=== PATIENT | male | born 1960 | race Caucasian/White ===

== ENCOUNTER 2017-12-19 09:19 | Inpatient (IN) | payer OTHER ==
[2017-12-19] MEDS: SOD CHLORIDE 0.9% 1,000 ML IV ×4 (09:51→20:23)
[2017-12-19 10:48] LABS: ADD MAN DIFF? NO
[2017-12-19 10:53] LABS: WHITE BLOOD COUNT 6.6 10^3/ul (4.8-10.8)
[2017-12-19 10:53] LABS: ABNORMAL IP MESSAGE 1; BASOPHILS % 0.2 % (0.0-2.0); HEMATOCRIT 46.6 % (42.0-52.0); HEMOGLOBIN 16.5 g/dl (14.0-18.0); LYMPHOCYTES # 0.6 10^3/ul (0.8-2.9); LYMPHOCYTES % 9.5 % (15.0-51.0); MEAN CORPUSCULAR HEMOGLOBIN 30.3 pg (29.0-33.0); MEAN CORPUSCULAR HGB CONC 35.4 g/dl (32.0-37.0); MEAN CORPUSCULAR VOLUME 85.7 fl (82.0-101.0); MEAN PLATELET VOLUME 10.5 fl (7.4-10.4); MONOCYTE # 0.9 10^3/ul (0.3-0.9); MONOCYTES % 13.4 % (0.0-11.0); NEUTROPHILS % 76.6 % (39.0-77.0); PLATELET COUNT 162 10^3/UL (140-415); POSITIVE DIFF @See below; RED BLOOD COUNT 5.44 10^6/ul (4.70-6.10); RED CELL DISTRIBUTION WIDTH 12.7 % (11.5-14.5)
[2017-12-19] MEDS: HYDROmorphONE 0.5 MG/0.5 ML SYG IV ×2 (10:57→10:59)
[2017-12-19] MEDS: ONDANSETRON 4 MG INJ IV ×2 (10:57→22:14)
[2017-12-19 11:16] LABS: PROTIME 13.3 Sec (11.9-14.9)
[2017-12-19 11:17] LABS: PARTIAL THROMBOPLASTIN TIME 31.9 Sec (25.0-35.0)
[2017-12-19 11:18] LABS: ALANINE AMINOTRANSFERASE 35 IU/L (13-69); ALBUMIN 4.3 g/dl (3.3-4.9); ALBUMIN/GLOBULIN RATIO 1.22; ALKALINE PHOSPHATASE 53 IU/L (42-121); ANION GAP 18 (8-16); ASPARTATE AMINO TRANSFERASE 25 IU/L (15-46); BILIRUBIN,INDIRECT 0.8 mg/dl (0-1.1); BILIRUBIN,TOTAL 0.8 mg/dl (0.2-1.3); BLOOD UREA NITROGEN 69 mg/dl (7-20); CARBON DIOXIDE 27 mmol/L (21-31); CHLORIDE 98 mmol/L (97-110); CREATININE 1.76 mg/dl (0.61-1.24); GLUCOSE 110 mg/dl (70-220); LIPASE 114 U/L (23-300); POTASSIUM 4.3 mmol/L (3.5-5.1); SODIUM 139 mmol/L (135-144); TOTAL PROTEIN 7.8 g/dl (6.1-8.1)
[2017-12-19] MEDS ORDERED: DOCUSATE SODIUM 100 MG CAP PO (14:30)
[2017-12-19] MEDS ORDERED: hydrALAzine 20 MG INJ IV (14:30)
[2017-12-19] MEDS ORDERED: ACETAMINOPHEN 325 MG TAB PO ×2 (14:30)
[2017-12-19] MEDS ORDERED: MAGNESIUM HYDROXIDE 30ML CUP PO (14:30)
[2017-12-19] MEDS ORDERED: NITROGLYCERIN (SL) 0.4 MG TAB SL (14:30)
[2017-12-19] MEDS ORDERED: NACL 0.9% 3 ML SYG IV (14:30)
[2017-12-19] MEDS ORDERED: NA PHOSPHATE/BIPHOS 133 ML ENEMA PR (14:30)
[2017-12-19] MEDS ORDERED: ALBUTEROL/IPRATROPIUM (NEB) 3 ML AMP HHN (14:30)
[2017-12-19] MEDS ORDERED: ONDANSETRON 4 MG INJ IV (14:30)
[2017-12-19] MEDS ORDERED: morphine 2 MG INJ IV (14:30)
[2017-12-19] MEDS ORDERED: LORAZEPAM 2 MG INJ IV (14:30)
[2017-12-19] MEDS: CEFEPIME 2GM/50 ML (PMX) 50 ML IVPB (14:43)
[2017-12-19 15:36] LABS: INR 1.02; PROTIME 13.5 Sec (11.9-14.9); PT RATIO 1.1
[2017-12-19] MEDS: VANCOMYCIN 1 GM (PMX) 250 ML IVPB (15:55)
[2017-12-19 16:04] LABS: FREE T4 (FREE THYROXINE) 1.36 ng/dl (0.64-1.79)
[2017-12-19] MEDS: HYDROCODONE/APAP (5/325) TAB PO ×2 (17:38→22:41)
[2017-12-19] MEDS: CIPROFLOXACIN 400MG/D5W 200 ML IVPB ×2 (18:21→21:00)
[2017-12-19] MEDS: MAGNESIUM CITRATE 300 ML BTL PO (20:22)
[2017-12-19] MEDS: BISACODYL (EC) 5 MG TAB PO (20:22)
[2017-12-19] MEDS: FAMOTIDINE 20 MG INJ IV (20:23)
[2017-12-19] MEDS: POLYETHYLENE GLYCOL 3350 119 GM POWDER PO (21:10)
[2017-12-19] MEDS: metroNIDAZOLE 500 MG/NS (PMX) 100 ML IVPB (22:10)
[2017-12-20] MEDS: SOD CHLORIDE 0.9% 1,000 ML IV ×4 (00:24→22:14)
[2017-12-20] MEDS: metroNIDAZOLE 500 MG/NS (PMX) 100 ML IVPB ×3 (05:39→22:14)
[2017-12-20] MEDS: POLYETHYLENE GLYCOL 3350 119 GM POWDER PO (05:44)
[2017-12-20 06:13] LABS: ADD MAN DIFF? NO
[2017-12-20 06:32] LABS: HEMOGLOBIN A1C 4.9 % (0-5.9)
[2017-12-20 06:49] LABS: ANION GAP 13 (8-16); BLOOD UREA NITROGEN 43 mg/dl (7-20); CALCIUM 8.1 mg/dl (8.4-10.2); CARBON DIOXIDE 27 mmol/L (21-31); CHLORIDE 106 mmol/L (97-110); CREATININE 1.16 mg/dl (0.61-1.24); GLUCOSE 92 mg/dl (70-220); MAGNESIUM 2.6 mg/dl (1.7-2.5); PHOSPHORUS 2.5 mg/dl (2.5-4.9); POTASSIUM 4.4 mmol/L (3.5-5.1); SODIUM 142 mmol/L (135-144)
[2017-12-20 07:01] LABS: CHOLESTEROL 103 mg/dl (100-200)
[2017-12-20 07:01] LABS: CHOL/HDL RATIO 6.8 RATIO; HDL CHOLESTEROL 15 mg/dl (28-71); LDL CHOLESTEROL,CALCULATED 62 mg/dl; TRIGLYCERIDES 132 mg/dl (0-149)
[2017-12-20 07:33] LABS: BASOPHILS % 0.4 % (0.0-2.0); EOSINOPHILS % 0.2 % (0.0-7.0); HEMATOCRIT 39.5 % (42.0-52.0); HEMOGLOBIN 13.8 g/dl (14.0-18.0); LYMPHOCYTES % 18.1 % (15.0-51.0); MEAN CORPUSCULAR HEMOGLOBIN 30.5 pg (29.0-33.0); MEAN CORPUSCULAR HGB CONC 34.9 g/dl (32.0-37.0); MEAN CORPUSCULAR VOLUME 87.2 fl (82.0-101.0); MEAN PLATELET VOLUME 11.1 fl (7.4-10.4); MONOCYTE # 0.7 10^3/ul (0.3-0.9); MONOCYTES % 12.8 % (0.0-11.0); NEUTROPHIL # 3.6 10^3/ul (1.6-7.5); NEUTROPHILS % 67.8 % (39.0-77.0); PLATELET COUNT 151 10^3/UL (140-415); POSITIVE DIFF @See below; RED BLOOD COUNT 4.53 10^6/ul (4.70-6.10); RED CELL DISTRIBUTION WIDTH 12.8 % (11.5-14.5)
[2017-12-20 07:33] LABS: WHITE BLOOD COUNT 5.4 10^3/ul (4.8-10.8)
[2017-12-20] MEDS: CIPROFLOXACIN 400MG/D5W 200 ML IVPB ×2 (08:03→21:08)
[2017-12-20] MEDS: FAMOTIDINE 20 MG INJ IV (08:03)
[2017-12-20] MEDS: BISACODYL (EC) 5 MG TAB PO (08:03)
[2017-12-20 08:45] LABS: THYROID STIMULATING HORMONE 0.626 MIU/L (0.465-4.680)
[2017-12-20] MEDS ORDERED: PROPOFOL 60 ML (16:48)
[2017-12-20] MEDS ORDERED: MIDAZOLAM 1 MG/ML 2 ML INJ (16:48)
[2017-12-20] MEDS ORDERED: LIDOCAINE 1% (MPF) 5 ML VIAL (16:49)
[2017-12-21] MEDS: metroNIDAZOLE 500 MG/NS (PMX) 100 ML IVPB ×3 (05:28→22:48)
[2017-12-21 05:57] LABS: ADD MAN DIFF? NO
[2017-12-21 05:58] LABS: EOSINOPHILS % 0.4 % (0.0-7.0); HEMATOCRIT 33.9 % (42.0-52.0); HEMOGLOBIN 11.7 g/dl (14.0-18.0); LYMPHOCYTES # 1.5 10^3/ul (0.8-2.9); LYMPHOCYTES % 29.8 % (15.0-51.0); MEAN CORPUSCULAR HGB CONC 34.5 g/dl (32.0-37.0); MEAN CORPUSCULAR VOLUME 86.9 fl (82.0-101.0); MEAN PLATELET VOLUME 10.2 fl (7.4-10.4); MONOCYTE # 0.6 10^3/ul (0.3-0.9); MONOCYTES % 12.2 % (0.0-11.0); NEUTROPHIL # 2.9 10^3/ul (1.6-7.5); NEUTROPHILS % 57.2 % (39.0-77.0); PLATELET COUNT 138 10^3/UL (140-415)
[2017-12-21 05:58] LABS: WHITE BLOOD COUNT 5.1 10^3/ul (4.8-10.8)
[2017-12-21] MEDS: SOD CHLORIDE 0.9% 1,000 ML IV ×3 (06:10→22:48)
[2017-12-21 06:17] LABS: ANION GAP 13 (8-16); BLOOD UREA NITROGEN 26 mg/dl (7-20); CALCIUM 7.6 mg/dl (8.4-10.2); CARBON DIOXIDE 26 mmol/L (21-31); CHLORIDE 108 mmol/L (97-110); GLUCOSE 74 mg/dl (70-220); POTASSIUM 3.8 mmol/L (3.5-5.1); SODIUM 143 mmol/L (135-144)
[2017-12-21] MEDS: CIPROFLOXACIN 400MG/D5W 200 ML IVPB ×2 (09:03→20:31)
[2017-12-21] MEDS: FAMOTIDINE 20 MG INJ IV (09:03)
[2017-12-21] MEDS: predniSONE 20 MG TAB PO (12:02)
[2017-12-21] MEDS: BALSALAZIDE 750 MG CAP PO (21:00)
[2017-12-22] MEDS: SOD CHLORIDE 0.9% 1,000 ML IV (02:24)
[2017-12-22] MEDS: metroNIDAZOLE 500 MG/NS (PMX) 100 ML IVPB (05:59)
[2017-12-22] MEDS: PANTOPRAZOLE (EC) 40 MG TAB PO (06:02)
[2017-12-22 06:09] LABS: ADD MAN DIFF? NO
[2017-12-22 06:14] LABS: WHITE BLOOD COUNT 5.7 10^3/ul (4.8-10.8)
[2017-12-22 06:14] LABS: EOSINOPHILS % 0.2 % (0.0-7.0); HEMATOCRIT 33.7 % (42.0-52.0); HEMOGLOBIN 11.9 g/dl (14.0-18.0); LYMPHOCYTES # 1.3 10^3/ul (0.8-2.9); MEAN CORPUSCULAR HEMOGLOBIN 30.4 pg (29.0-33.0); MEAN CORPUSCULAR HGB CONC 35.3 g/dl (32.0-37.0); MEAN CORPUSCULAR VOLUME 86.2 fl (82.0-101.0); MONOCYTE # 0.7 10^3/ul (0.3-0.9); MONOCYTES % 11.5 % (0.0-11.0); NEUTROPHIL # 3.7 10^3/ul (1.6-7.5); NEUTROPHILS % 64.3 % (39.0-77.0); PLATELET COUNT 144 10^3/UL (140-415); RED BLOOD COUNT 3.91 10^6/ul (4.70-6.10); RED CELL DISTRIBUTION WIDTH 12.6 % (11.5-14.5)
[2017-12-22 06:46] LABS: ANION GAP 12 (8-16); BLOOD UREA NITROGEN 18 mg/dl (7-20); CALCIUM 7.9 mg/dl (8.4-10.2); CARBON DIOXIDE 27 mmol/L (21-31); CHLORIDE 108 mmol/L (97-110); CREATININE 0.98 mg/dl (0.61-1.24); GLUCOSE 92 mg/dl (70-220); POTASSIUM 4.2 mmol/L (3.5-5.1); SODIUM 143 mmol/L (135-144)
[2017-12-22] MEDS: CIPROFLOXACIN 400MG/D5W 200 ML IVPB (08:50)
[2017-12-22] MEDS: predniSONE 20 MG TAB PO (09:21)
[2017-12-22] MEDS: BALSALAZIDE 750 MG CAP PO ×2 (09:22→13:38)
== END 2017-12-22 14:25 | disposition home or self-care (01) | DRG 387 ==
LOC: E/R 09:19 → MS3 14:16 → MS2 23:26
PROVIDERS: Hospitalist
PROC: 0DB98ZX Excision of Duodenum, Via Natural or Artificial Opening Endoscopic, Diagnostic (ICD-10-PCS; principal; 2017-12-20 15:32)
PROC: 0DB68ZX Excision of Stomach, Via Natural or Artificial Opening Endoscopic, Diagnostic (ICD-10-PCS; 2017-12-20 15:32)
PROC: 0DB48ZX Excision of Esophagogastric Junction, Via Natural or Artificial Opening Endoscopic, Diagnostic (ICD-10-PCS; 2017-12-20 15:32)
PROC: 0DBK8ZX Excision of Ascending Colon, Via Natural or Artificial Opening Endoscopic, Diagnostic (ICD-10-PCS; 2017-12-20 15:32)
PROC: 0DBB8ZX Excision of Ileum, Via Natural or Artificial Opening Endoscopic, Diagnostic (ICD-10-PCS; 2017-12-20 15:32)
PROC: 0DBH8ZX Excision of Cecum, Via Natural or Artificial Opening Endoscopic, Diagnostic (ICD-10-PCS; 2017-12-20 15:32)
DX: K51.011 Ulcerative (chronic) pancolitis with rectal bleeding (principal); K21.9 Gastro-esophageal reflux disease without esophagitis; K29.70 Gastritis, unspecified, without bleeding
CPT/HCPCS: 36415; 74176; 80048; 80053; 80061; 83036; 83690; 83735; 84100; 84439; 84443; 85025; 85610; 85730; 87040; 87045; 87075; 87177; 88305; 88312; 96361; 96365; 96366; 96368; 96375; 99285-25

== ENCOUNTER 2019-01-23 10:20 | Emergency (ER) | payer OTHER ==
[2019-01-23 11:37] LABS: ADD MAN DIFF? NO
[2019-01-23 11:41] LABS: BASOPHILS % 0.2 % (0.0-2.0); EOSINOPHILS # 0.1 10^3/ul (0.0-0.5); EOSINOPHILS % 1.8 % (0.0-7.0); HEMATOCRIT 41.5 % (42.0-52.0); HEMOGLOBIN 13.8 g/dl (14.0-18.0); LYMPHOCYTES # 1.6 10^3/ul (0.8-2.9); LYMPHOCYTES % 32.3 % (15.0-51.0); MEAN CORPUSCULAR HEMOGLOBIN 29.7 pg (29.0-33.0); MEAN CORPUSCULAR HGB CONC 33.3 g/dl (32.0-37.0); MEAN CORPUSCULAR VOLUME 89.4 fl (82.0-101.0); MEAN PLATELET VOLUME 9.4 fl (7.4-10.4); MONOCYTE # 0.4 10^3/ul (0.3-0.9); MONOCYTES % 8.4 % (0.0-11.0); NEUTROPHIL # 2.9 10^3/ul (1.6-7.5); NEUTROPHILS % 57.1 % (39.0-77.0); PLATELET COUNT 178 10^3/UL (140-415); RED BLOOD COUNT 4.64 10^6/ul (4.70-6.10); RED CELL DISTRIBUTION WIDTH 12.3 % (11.5-14.5)
[2019-01-23 11:58] LABS: ALANINE AMINOTRANSFERASE 33 IU/L (13-69); ALBUMIN 4.7 g/dl (3.3-4.9); ALBUMIN/GLOBULIN RATIO 1.62; ALKALINE PHOSPHATASE 73 IU/L (42-121); ANION GAP 9 (5-13); ASPARTATE AMINO TRANSFERASE 28 IU/L (15-46); BILIRUBIN,INDIRECT 0.9 mg/dl (0-1.1); BILIRUBIN,TOTAL 0.9 mg/dl (0.2-1.3); BLOOD UREA NITROGEN 17 mg/dl (7-20); CALCIUM 9.6 mg/dl (8.4-10.2); CARBON DIOXIDE 30 mmol/L (21-31); CHLORIDE 103 mmol/L (97-110); CREATININE 0.95 mg/dl (0.61-1.24); Estimated GFR > 60 mL/min (>60); GLUCOSE 89 mg/dl (70-220); POTASSIUM 4.7 mmol/L (3.5-5.1); SODIUM 142 mmol/L (135-144); TOTAL PROTEIN 7.6 g/dl (6.1-8.1)
[2019-01-23] MEDS: SOD CHLORIDE 0.9% 100 ML (13:06)
[2019-01-23] MEDS: IOHEXOL 300MG/ML 150 ML BTL (13:08)
== END 2019-01-23 14:14 | disposition home or self-care (01) ==
LOC: FTE 10:20
DX: F45.8 Other somatoform disorders (principal)
CPT/HCPCS: 70491; 80053; 85025; 93005; 99285-25